=== PATIENT | female | born 1995 | race Caucasian/White ===

== ENCOUNTER 2023-11-23 23:05 | Emergency (ER) | payer OTHER | END 2023-11-24 00:29 | disposition home or self-care (01) | LOC: ED 23:05 | DX: Z04.3 Encounter for examination and observation following other accident (principal); V80.010A Animal-rider injured by fall from or being thrown from horse in noncollision accident, initial encounter; Y93.52 Activity, horseback riding; Y92.39 Other specified sports and athletic area as the place of occurrence of the external cause; Y99.0 Civilian activity done for income or pay ==